=== PATIENT | female | born 1935 | race Caucasian/White ===

== ENCOUNTER 2019-11-02 16:35 | Emergency (ER) | payer OTHER ==
[~2019-11-02] VITALS: Ht 157.5 cm; Wt 89.1 kg
[2019-11-02 16:49] VITALS: Ht 157.5 cm; Wt 89.1 kg
[2019-11-02] MEDS ORDERED: GABAPENTIN100 MG PO (16:52)
[2019-11-02] MEDS ORDERED: ZANAFLEX4 MG PO (16:53)
[2019-11-02] MEDS ORDERED: ALDACTONE50 MG PO (16:54)
[2019-11-02] MEDS ORDERED: FUROSEMIDE20 MG PO (16:55)
[2019-11-02 18:19] LABS: BASOPHILS 0.3 % (0-2); EOSINOPHILS 2.5 % (0-7); HEMATOCRIT 35.6 % (36.0-48.0); HEMOGLOBIN 11.5 g/dL (12-16); IMMATURE GRANULOCYTES 0.1 % (0-5); LYMPHOCYTES 18.8 % (15-50); MCH 28.8 pg (26.0-34.0); MCHC 32.3 g/dL (31.0-37.0); NEUTROPHILS 68.3 % (40-80); PLATELET COUNT 232 10x3/uL (130-400); RDW 15.3 % (11.5-14.5); WBC 7.2 10x3/uL (4.8-10.8)
[2019-11-02 18:30] LABS: APTT 28.8 SECONDS (22.8-39.4)
[2019-11-02 18:32] LABS: INR 1.13 (0.85-1.17); PROTIME 14.4 SECONDS (11.6-15.0)
[2019-11-02 18:39] LABS: ANION GAP 12.2 mmol/L (8-16); CALCIUM 8.5 mg/dL (8.5-10.1); CREATININE - SERUM 1.3 mg/dL (0.6-1.3); POTASSIUM - SERUM 4.2 mmol/L (3.5-5.1)
[2019-11-02 18:43] LABS: ALBUMIN 3.1 g/dL (3.4-5.0); BILIRUBIN - TOTAL 0.28 mg/dL (0.2-1.3); PROTEIN - SERUM 6.1 g/dL (6.4-8.2)
[2019-11-02] MEDS ORDERED: CYCLOBENZAPRINE10 MG PO (19:03)
[2019-11-02 19:24] VITALS: BP 112/53
== END 2019-11-02 19:25 | disposition home or self-care (01) ==
LOC: EDBD 16:35 → D.ER 16:35
PROVIDERS: Family Medicine
DX: M25.551 Pain in right hip (principal); V89.2XXA Person injured in unspecified motor-vehicle accident, traffic, initial encounter; I20.9 Angina pectoris, unspecified; M54.9 Dorsalgia, unspecified; K57.92 Diverticulitis of intestine, part unspecified, without perforation or abscess without bleeding